=== PATIENT | female | born 1980 | race Caucasian/White ===

== ENCOUNTER 2016-09-16 10:54 | Emergency (ER) | payer BC ==
[2016-09-16 11:04] VITALS: BP 120/76
--- NOTE | 2016-09-16 11:12 | UC ---
Complaint Female HPI - HPI Summary HPI Summary: 35 YEAR OLD FEMALE PRESENTS WITH COMPLAINTS OF DYSURIA AND URINARY FREQUENCY. - History Of Current Complaint Chief Complaint: UCGU Stated Complaint: UTI Time Seen by Provider: 09/16/16 11:10 Hx Last Menstrual Period: - Allergies/Home Medications Allergies/Adverse Reactions: Allergies Allergy/AdvReac Type Severity Reaction Status Date / Time No Known Allergies Allergy Verified 11/11/15 18:25 PMH/Surg Hx/FS Hx/Imm Hx - Surgical History Surgical History: Yes Surgery Procedure, Year, and Place: ; endometrial polyps; mass in uterine matrix - Family History Family History: denies family hx of DM, HTN CAD - Social History Alcohol Use: None Substance Use Type: None Smoking Status (MU): Never Smoked Tobacco Review of Systems Constitutional: Negative Skin: Negative Eyes: Negative ENT: Negative Respiratory: Negative Cardiovascular: Negative Gastrointestinal: Negative Genitourinary: Dysuria, Frequency, Urgency Motor: Negative Neurovascular: Negative Musculoskeletal: Negative Neurological: Negative Psychological: Negative All Other Systems Reviewed And Are Negative: Yes Physical Exam Triage Information Reviewed: Yes Vital Signs: Initial Vital Signs Temp 36.9 C 09/16/16 10:59 Pulse 75 09/16/16 10:59 Resp 16 09/16/16 10:59 BP 120/76 09/16/16 10:59 Pulse Ox 100 09/16/16 10:59 Eye Exam: Normal ENT Exam: Normal Dental Exam: Normal Neck exam: Normal Neck: Positive: 1 Respiratory Exam: Normal Cardiovascular Exam: Normal Abdominal Exam: Normal Musculoskeletal Exam: Normal Neurological Exam: Normal Psychological Exam: Normal Skin Exam: Normal Complaint Female Dx - Differential Dx/Diagnosis Provider Diagnoses: DYSURIA Discharge - Discharge Plan Condition: Stable Disposition: HOME Prescriptions: Sulfamethox/Trimethoprim DS* [Bactrim DS 800/160 TAB*] 1 tab PO BID #14 tab Patient Education Materials: Dysuria (ED), Urinary Tract Infection in Women (ED ) Referrals: No Primary Care Phys,NOPCP [Medical Doctor] - If Needed
== END 2016-09-16 11:35 | disposition home or self-care (01) ==
LOC: UCEAST 10:54
DX: R30.0 Dysuria (principal); R35.0 Frequency of micturition; Z32.02 Encounter for pregnancy test, result negative
CPT/HCPCS: 81003; 84702; 87086; 99212; G0463

== ENCOUNTER 2018-07-01 14:55 | Emergency (ER) | payer BC ==
[2018-07-01 15:31] VITALS: BP 115/70
--- NOTE | 2018-07-01 16:25 | ED ---
GI/ HPI - HPI Summary HPI Summary: 37-year-old female presents with dysuria urgency for the past 3 days. She denies any history of UTI. She denies any fevers. No flank pain. No vaginal discharge. Denies any chance she is . Has no medical conditions. - History of Current Complaint Chief Complaint: UCGU Time Seen by Provider: 07/01/18 16:20 Stated Complaint: URINARY Hx Last Menstrual Period: 05/20/18 Pain Intensity: 7 - Allergy/Home Medications Allergies/Adverse Reactions: Allergies Allergy/AdvReac Type Severity Reaction Status Date / Time No Known Allergies Allergy Verified 07/01/18 15:31 PMH/Surg Hx/FS Hx/Imm Hx Endocrine/Hematology History: Denies: Hx Diabetes, Hx Thyroid Disease Cardiovascular History: Denies: Hx Hypertension Respiratory History: Denies: Hx Asthma, Hx Chronic Obstructive Pulmonary Disease (COPD) GI History: Denies: Hx Ulcer - Surgical History Surgery Procedure, Year, and Place: ; endometrial polyps; mass in uterine matrix Infectious Disease History: No Infectious Disease History: Reports: Hx Shingles Denies: Hx Clostridium Difficile, Hx Hepatitis, Hx Human Immunodeficiency Virus (HIV), Hx of Known/Suspected MRSA, Hx Tuberculosis, Hx Known/Suspected VRE , Hx Known/Suspected VRSA, History Other Infectious Disease, Traveled Outside the [place] in Last 30 Days - Family History Family History: denies family hx of DM, HTN CAD - Social History Alcohol Use: None Substance Use Type: Reports: None Smoking Status (MU): Never Smoked Tobacco Review of Systems Negative: Fever Negative: Chest Pain Negative: Shortness Of Breath Negative: Vomiting Positive: dysuria. Negative: flank pain All Other Systems Reviewed And Are Negative: Yes Physical Exam Triage Information Reviewed: Yes Vital Signs On Initial Exam: Initial Vitals Temp Pulse Resp BP Pulse Ox 98.5 F 70 115 115/70 100 07/01/18 15:25 07/01/18 15:25 07/01/18 15:25 07/01/18 15:25 07/01/18 15:25 Vital Signs Reviewed: Yes Appearance: Positive: Well-Appearing Skin: Positive: Warm, Dry Head/Face: Positive: Normal Head/Face Inspection Eyes: Positive: Normal, Conjunctiva Clear ENT: Positive: Pharynx normal Respiratory/Lung Sounds: Positive: Clear to Auscultation, Breath Sounds Present Cardiovascular: Positive: Normal, RRR Abdomen Description: Positive: Soft, Other: - tenderness suprapubic. Negative: CVA Tenderness (R), CVA Tenderness (L) Bowel Sounds: Positive: Present Musculoskeletal: Positive: Normal Neurological: Positive: Normal Psychiatric: Positive: Normal Diagnostics - Vital Signs Vital Signs Temp Pulse Resp BP Pulse Ox 07/01/18 15:25 98.5 F 70 115 115/70 100 - Laboratory Lab Results: Lab Results 07/01/18 07/01/18 Range/Units 16:00 16:02 POC Urine Color Dark yellow POC Urine Clarity Cloudy POC Urine pH 5.5 (5-9) POC Ur Specif [place] 1.025 (1.010-1.030) POC Urine Protein Negative (Negative) POC Ur Glucose (UA) Negative (Negative) POC Urine Ketones Trace A (Negative) POC Urine Blood Trace-intact A (Negative) POC Urine Nitrite Negative (Negative) POC Urine Bilirubin Negative (Negative) POC Urine Urobilinogen 0.2 (Negative) POC U Leukocyte Esteras 1+ A (Negative) POC Ur Test Negative (Negative) Lab Statement: Any lab studies that have been ordered have been reviewed, and results considered in the medical decision making process. GIGU Course/Dx - Course Course Of Treatment: 37-year-old female presents with dysuria urgency for the past 3 days. She denies any history of UTI. She denies any fevers. No flank pain. No vaginal discharge. Denies any chance she is . Has no medical conditions. On exam mild suprapubic tenderness. Negative CVA tenderness. Urine shows UTI. will place on macrobid. Gave her Pyridium for pain. Patient understands agrees with plan. - Diagnoses Differential Diagnoses - Female: STD, Urinary Tract Infection, Ureteral Calculi Provider Diagnoses: UTI (urinary tract infection) Discharge - Sign-Out/Discharge Documenting (check all that apply): Patient Departure All imaging exams completed and their final reports reviewed: No Studies - Discharge Plan Condition: Good Disposition: HOME Prescriptions: Nitrofurantoin Monohyd/M-Cryst [Macrobid 100 mg Capsule] 100 mg PO BID #10 cap Phenazopyridine 200 mg (NF) [Pyridium 200 MG tab *] 200 mg PO TID #6 tab Patient Education Materials: Urinary Tract Infection in Women (ED) Referrals: Gutiérrez,Maddie, MD [Primary Care Provider] - Additional Instructions: Take Macrobid twice a day for 5days, Take pyridium three times a day with food for 2 days Drink plenty of fluids Follow up with primary Return to ED if develop fever, flank pain, or vomiting or any new or worsening symptoms - Billing Disposition and Condition Condition: GOOD Disposition: Home
--- NOTE | 2018-07-03 12:07 | UC ---
- Progress Note Progress Note: Urine culture report( preliminary): Citrobacter Koseri 10-25,000 CFU per mL She is on Macrobid Await final culture sensitivity reports No change in plan at this time. Course/Dx - Diagnoses Provider Diagnoses: UTI (urinary tract infection) Discharge - Sign-Out/Discharge Documenting (check all that apply): Post-Discharge Follow Up All imaging exams completed and their final reports reviewed: No Studies - Discharge Plan Condition: Good Disposition: HOME Prescriptions: Nitrofurantoin Monohyd/M-Cryst [Macrobid 100 mg Capsule] 100 mg PO BID #10 cap Phenazopyridine 200 mg (NF) [Pyridium 200 MG tab *] 200 mg PO TID #6 tab Patient Education Materials: Urinary Tract Infection in Women (ED) Referrals: Maddie Gutiérrez MD [Primary Care Provider] - Additional Instructions: Take Macrobid twice a day for 5days, Take pyridium three times a day with food for 2 days Drink plenty of fluids Follow up with primary Return to ED if develop fever, flank pain, or vomiting or any new or worsening symptoms - Billing Disposition and Condition Condition: GOOD Disposition: Home
== END 2018-07-01 16:30 | disposition home or self-care (01) ==
LOC: UCEAST 14:55
DX: N39.0 Urinary tract infection, site not specified (principal); Z32.02 Encounter for pregnancy test, result negative
CPT/HCPCS: 81003; 84702; 87077; 87086; 87186; 99212; G0463

== ENCOUNTER 2018-08-16 14:57 | Emergency (ER) | payer BC ==
[2018-08-16 15:09] VITALS: BP 136/74
[2018-08-16] MEDS ORDERED: Ketorolac INJ* 60 MG/2 ML VIAL IM ONE (15:15)
--- NOTE | 2018-08-16 15:15 | UC ---
Neck Pain HPI - HPI Summary HPI Summary: 37 yo female presents with neck pain. She tells me that 2 days ago she woke up and has some posterior neck pain that was worse with movement. This pain continued yesterday, so she went to get a massage and felt a little better. Today her pain has continued. She endorses some radiation of pain into her left shoulder/upper arm. She has not taken anything OTC for her discomfort. She denies injury, recent illness, fever, sore throat, cough, SOB, chest pain. No numbness or tingling. - History of Current Complaint Chief Complaint: UCGeneralIllness Stated Complaint: NECK PAIN Hx Obtained From: Patient Hx Last Menstrual Period: 08/04/18 Onset/Duration: Sudden Onset Severity: Moderate Pain Intensity: 8 Pain Scale Used: 0-10 Numeric - Allergies/Home Medications Allergies/Adverse Reactions: Allergies Allergy/AdvReac Type Severity Reaction Status Date / Time No Known Allergies Allergy Verified 08/16/18 15:09 PMH/Surg Hx/FS Hx/Imm Hx - Additional Past Medical History Additional PMH: None - Surgical History Surgical History: Yes Surgery Procedure, Year, and Place: ; endometrial polyps; mass in uterine matrix - Family History Known Family History: Positive: None Family History: denies family hx of DM, HTN CAD - Social History Lives: With Family Alcohol Use: None Substance Use Type: None Smoking Status (MU): Never Smoked Tobacco Review of Systems All Other Systems Reviewed And Are Negative: Yes Constitutional: Positive: Negative Skin: Positive: Negative Respiratory: Positive: Negative Cardiovascular: Positive: Negative Neurovascular: Positive: Negative Musculoskeletal: Positive: Other: - Neck Neurological: Positive: Negative Psychological: Positive: Negative Physical Exam - Summary Physical Exam Summary: GENERAL: NAD. WDWN. No pain distress. SKIN: No rashes, sores, lesions, or open wounds. CHEST: No accessory muscle use. Breathing comfortably and in no distress. CV: Pulses intact radial and ulnar. Cap refill <2seconds MSK: Cervical spine: Mild TTP about entire cervical spine and paraspinal muscles. Left upper trapezius and levator TTP. Pain reproduced with left shoulder flexion >90deg. Pain with flexion, extension, and lateral rotation of neck. Spurlings without numbness or tingling. NEURO: Alert. Sensations intact C4-T1. PSYCH: Age appropriate behavior. Triage Information Reviewed: Yes Vital Signs: Initial Vital Signs Temp 99.1 F 08/16/18 15:03 Pulse 86 08/16/18 15:03 Resp 12 08/16/18 15:03 BP 136/74 08/16/18 15:03 Pulse Ox 99 08/16/18 15:03 Vital Signs Reviewed: Yes Neck Pain Course/Dx - Course Course Of Treatment: Suspect muscle spasm. XR: IMPRESSION: MILD DEGENERATIVE DISC DISEASE. In the clinic, pt was given Toradol IM for her discomfort. Will rx for flexeril and naproxen for her discomfort and have her apply heat to decrease cervical spasm. - Differential Dx/Diagnosis Provider Diagnosis: Cervical paraspinal muscle spasm Discharge - Sign-Out/Discharge Documenting (check all that apply): Patient Departure All imaging exams completed and their final reports reviewed: Yes - Discharge Plan Condition: Stable Disposition: HOME Prescriptions: Cyclobenzaprine TAB* [Flexeril 10 MG TAB*] 10 mg PO TID PRN #21 tab PRN Reason: Pain Naproxen [Naproxen 500 mg tab] 500 mg PO BID PRN #30 tablet.dr COLL[place]O Reason: Pain Patient Education Materials: Muscle Spasm (ED) Referrals: Maddie Gutiérrez MD [Primary Care Provider] - 1 Week Additional Instructions: If you develop a fever, shortness of breath, chest pain, new or worsening symptoms - please call your PCP or go to the ED immediately. Your X-Ray was normal today. 1) Rest and apply heat to your neck to decrease pain. 2) Practice gentle stretches of your neck to loosen the muscle and relief pain. 3) I recommend that you schedule an appointment with Physical therapy for further treatment of your neck pain and follow up with your Primary Doctor for a recheck. - Billing Disposition and Condition Condition: STABLE Disposition: Home
== END 2018-08-16 15:53 | disposition home or self-care (01) ==
LOC: UCEAST 14:57
DX: M62.838 Other muscle spasm (principal); M50.30 Other cervical disc degeneration, unspecified cervical region
CPT/HCPCS: 72050; 96372; 99212; G0463; J1885